=== PATIENT | female | born 1985 | race Caucasian/White ===

== ENCOUNTER 2018-03-09 20:48 | Inpatient (IN) | payer MEDICAID ==
[2018-03-09 23:03] LABS: ADD MAN DIFF? NO
[2018-03-09 23:11] LABS: BASOPHIL # 0.1 10^3/ul (0.0-0.1); BASOPHILS % 0.5 % (0.0-2.0); EOSINOPHILS # 0.1 10^3/ul (0.0-0.5); EOSINOPHILS % 1.1 % (0.0-7.0); HEMATOCRIT 40.5 % (37.0-47.0); HEMOGLOBIN 13.8 g/dl (12.0-16.0); LYMPHOCYTES # 2.6 10^3/ul (0.8-2.9); LYMPHOCYTES % 27.4 % (15.0-51.0); MEAN CORPUSCULAR HEMOGLOBIN 32.2 pg (29.0-33.0); MEAN CORPUSCULAR HGB CONC 34.1 g/dl (32.0-37.0); MEAN CORPUSCULAR VOLUME 94.4 fl (82.0-101.0); MEAN PLATELET VOLUME 11.2 fl (7.4-10.4); MONOCYTE # 0.4 10^3/ul (0.3-0.9); MONOCYTES % 4.6 % (0.0-11.0); NEUTROPHIL # 6.2 10^3/ul (1.6-7.5); NEUTROPHILS % 65.8 % (39.0-77.0); PLATELET COUNT 202 10^3/UL (140-415); RED BLOOD COUNT 4.29 10^6/ul (4.20-5.40); RED CELL DISTRIBUTION WIDTH 12.5 % (11.5-14.5)
[2018-03-09 23:11] LABS: WHITE BLOOD COUNT 9.4 10^3/ul (4.8-10.8)
[2018-03-09 23:28] LABS: ALANINE AMINOTRANSFERASE 83 IU/L (13-69); ALBUMIN 3.5 g/dl (3.3-4.9); ALBUMIN/GLOBULIN RATIO 1.12; ALKALINE PHOSPHATASE 237 IU/L (42-121); ANION GAP 11 (5-13); ASPARTATE AMINO TRANSFERASE 76 IU/L (15-46); BILIRUBIN,INDIRECT 0.3 mg/dl (0-1.1); BILIRUBIN,TOTAL 0.3 mg/dl (0.2-1.3); BLOOD UREA NITROGEN 14 mg/dl (7-20); CALCIUM 9.4 mg/dl (8.4-10.2); CARBON DIOXIDE 24 mmol/L (21-31); CHLORIDE 105 mmol/L (97-110); CREATININE 0.68 mg/dl (0.44-1.00); Estimated GFR > 60 mL/min (>60); GLUCOSE 83 mg/dl (70-220); POTASSIUM 4.2 mmol/L (3.5-5.1); SODIUM 140 mmol/L (135-144); TOTAL PROTEIN 6.6 g/dl (6.1-8.1)
[2018-03-10] MEDS ORDERED: ACETAMINOPHEN 325 MG TAB PO (01:30)
[2018-03-10] MEDS: URSODIOL 300 MG CAP PO ×3 (02:30→21:42)
[2018-03-10 06:22] LABS: ADD MAN DIFF? NO
[2018-03-10 06:23] LABS: WHITE BLOOD COUNT 9.1 10^3/ul (4.8-10.8)
[2018-03-10 06:23] LABS: BASOPHIL # 0.1 10^3/ul (0.0-0.1); BASOPHILS % 0.5 % (0.0-2.0); EOSINOPHILS # 0.1 10^3/ul (0.0-0.5); EOSINOPHILS % 1.2 % (0.0-7.0); HEMATOCRIT 39.6 % (37.0-47.0); HEMOGLOBIN 13.3 g/dl (12.0-16.0); LYMPHOCYTES # 2.7 10^3/ul (0.8-2.9); MEAN CORPUSCULAR HEMOGLOBIN 31.4 pg (29.0-33.0); MEAN CORPUSCULAR HGB CONC 33.6 g/dl (32.0-37.0); MEAN CORPUSCULAR VOLUME 93.6 fl (82.0-101.0); MEAN PLATELET VOLUME 11.3 fl (7.4-10.4); MONOCYTE # 0.5 10^3/ul (0.3-0.9); MONOCYTES % 4.9 % (0.0-11.0); NEUTROPHIL # 5.8 10^3/ul (1.6-7.5); NEUTROPHILS % 63.6 % (39.0-77.0); PLATELET COUNT 199 10^3/UL (140-415); RED BLOOD COUNT 4.23 10^6/ul (4.20-5.40); RED CELL DISTRIBUTION WIDTH 12.5 % (11.5-14.5)
[2018-03-10 06:52] LABS: ALANINE AMINOTRANSFERASE 75 IU/L (13-69); ALBUMIN 3.3 g/dl (3.3-4.9); ALKALINE PHOSPHATASE 231 IU/L (42-121); ANION GAP 12 (5-13); ASPARTATE AMINO TRANSFERASE 69 IU/L (15-46); BILIRUBIN,INDIRECT 0.4 mg/dl (0-1.1); BILIRUBIN,TOTAL 0.4 mg/dl (0.2-1.3); BLOOD UREA NITROGEN 14 mg/dl (7-20); CALCIUM 9.2 mg/dl (8.4-10.2); CARBON DIOXIDE 20 mmol/L (21-31); CHLORIDE 107 mmol/L (97-110); CREATININE 0.65 mg/dl (0.44-1.00); Estimated GFR > 60 mL/min (>60); GLUCOSE 84 mg/dl (70-220); SODIUM 139 mmol/L (135-144); TOTAL PROTEIN 6.3 g/dl (6.1-8.1); URIC ACID 6.7 mg/dl (3.1-7.9)
[2018-03-10 08:14] LABS: ADD UMIC NO; UR ASCORBIC ACID NEGATIVE (NEGATIVE); UR BILIRUBIN (Dip) NEGATIVE (NEGATIVE); UR BLOOD (Dip) NEGATIVE (NEGATIVE); UR CLARITY CLEAR (CLEAR); UR COLOR YELLOW (YELLOW); UR GLUCOSE (Dip) NEGATIVE (NEGATIVE); UR KETONES (Dip) NEGATIVE (NEGATIVE); UR LEUKOCYTE ESTERASE (Dip) NEGATIVE Leu/ul (NEGATIVE); UR NITRITE (Dip) NEGATIVE (NEGATIVE); UR SPECIFIC GRAVITY (Dip) 1.017 (1.003-1.030); UR TOTAL PROTEIN (Dip) NEGATIVE (NEGATIVE); UR UROBILINOGEN (Dip) NEGATIVE (NEGATIVE)
[2018-03-10] MEDS: PRENATAL VITAMIN PO (09:04)
[2018-03-10] MEDS: DOCUSATE SODIUM 100 MG CAP PO (09:04)
[2018-03-10] MEDS: LACTATED RINGER'S 1,000 ML IV ×2 (11:21→19:45)
[2018-03-10] MEDS ORDERED: BUTORPHANOL 2 MG INJ IV (11:30)
[2018-03-10] MEDS ORDERED: MISOPROSTOL 200 MCG TAB PR (11:30)
[2018-03-10] MEDS ORDERED: LIDOCAINE 1% (MPF) 30 ML INJ INJ (11:30)
[2018-03-10] MEDS ORDERED: OXYTOCIN 30 UNITS/LR 500 ML IV (11:30)
[2018-03-10] MEDS ORDERED: METHYLERGONOVINE 0.2 MG INJ IM (11:30)
[2018-03-10] MEDS ORDERED: CARBOPROST 250 MCG INJ IM (11:30)
[2018-03-10 12:14] LABS: WHITE BLOOD COUNT 8.8 10^3/ul (4.8-10.8)
[2018-03-10 12:14] LABS: ADD MAN DIFF? NO; BASOPHIL # 0.1 10^3/ul (0.0-0.1); BASOPHILS % 0.6 % (0.0-2.0); EOSINOPHILS # 0.1 10^3/ul (0.0-0.5); EOSINOPHILS % 0.9 % (0.0-7.0); HEMATOCRIT 40.6 % (37.0-47.0); HEMOGLOBIN 13.7 g/dl (12.0-16.0); LYMPHOCYTES # 2.3 10^3/ul (0.8-2.9); LYMPHOCYTES % 25.9 % (15.0-51.0); MEAN CORPUSCULAR HEMOGLOBIN 31.8 pg (29.0-33.0); MEAN CORPUSCULAR HGB CONC 33.7 g/dl (32.0-37.0); MEAN CORPUSCULAR VOLUME 94.2 fl (82.0-101.0); MEAN PLATELET VOLUME 11.6 fl (7.4-10.4); MONOCYTE # 0.5 10^3/ul (0.3-0.9); MONOCYTES % 5.3 % (0.0-11.0); NEUTROPHIL # 5.9 10^3/ul (1.6-7.5); NEUTROPHILS % 66.6 % (39.0-77.0); PLATELET COUNT 212 10^3/UL (140-415); RED BLOOD COUNT 4.31 10^6/ul (4.20-5.40); RED CELL DISTRIBUTION WIDTH 12.5 % (11.5-14.5)
[2018-03-10 12:39] LABS: PROTIME 12.2 Sec (11.9-14.9)
[2018-03-10 12:40] LABS: PARTIAL THROMBOPLASTIN TIME 26.2 Sec (23.0-35.0)
[2018-03-10] MEDS: MISOPROSTOL 50 MCG CAPSULE PO ×3 (14:06→21:00)
[2018-03-10 15:15] LABS: RAPID PLASMA REAGIN NONREACTIVE (NR)
[2018-03-10] MEDS ORDERED: DEXTROSE 5%-LR 1,000 ML IV (16:30)
[2018-03-11] MEDS: MISOPROSTOL 50 MCG CAPSULE PO ×6 (01:00→21:00)
[2018-03-11] MEDS: LIDOCAINE 0.5% (SDV) 50 ML INJ INFIL (04:09)
[2018-03-11] MEDS: LACTATED RINGER'S 1,000 ML IV ×3 (04:09→20:34)
[2018-03-11] MEDS ORDERED: IBUPROFEN 600 MG TAB PO (06:00)
[2018-03-11] MEDS ORDERED: LIDOCAINE 1% (MPF) 30 ML INJ INJ (06:00)
[2018-03-11 06:40] LABS: HEPATITIS B SURFACE ANTIGEN NEGATIVE (NEGATIVE)
[2018-03-11] MEDS: URSODIOL 300 MG CAP PO ×2 (09:07→21:25)
[2018-03-12] MEDS: LACTATED RINGER'S 1,000 ML IV ×3 (04:55→21:57)
[2018-03-12] MEDS: URSODIOL 300 MG CAP PO ×2 (09:13→21:06)
[2018-03-12] MEDS: OXYTOCIN 30 UNITS/LR 500 ML IV (10:43)
[2018-03-13] MEDS: LACTATED RINGER'S 1,000 ML IV (01:26)
[2018-03-13] MEDS ORDERED: FENTAnyl 2MCG/ML-ROPIV 0.2% 100 ML (01:45)
[2018-03-13] MEDS ORDERED: DIPHENHYDRAMINE 50 MG INJ IV ×2 (02:00→03:00)
[2018-03-13] MEDS ORDERED: FENTAnyl 2MCG/ML-ROPIV 0.2% 100 ML BAG EPI (02:00)
[2018-03-13] MEDS ORDERED: NALOXONE (0.4 MG/ML) INJ IV (02:00)
[2018-03-13] MEDS ORDERED: ONDANSETRON 4 MG INJ IV ×2 (02:00→03:00)
[2018-03-13] MEDS: OXYTOCIN 30 UNITS/LR 500 ML IV ×2 (02:12→03:33)
[2018-03-13] MEDS ORDERED: DEXTROSE 5%-LR 1,000 ML IV (02:41)
[2018-03-13] MEDS: LACTATED RINGER'S 1,000 ML IV* ×2 (02:41→08:05)
[2018-03-13] MEDS ORDERED: DIBUCAINE 1% 30 GM OINT TOP (03:00)
[2018-03-13] MEDS ORDERED: MISOPROSTOL 200 MCG TAB PR (03:00)
[2018-03-13] MEDS ORDERED: ZOLPIDEM 5 MG TAB PO (03:00)
[2018-03-13] MEDS ORDERED: ACETAMINOPHEN 325 MG TAB PO (03:00)
[2018-03-13] MEDS ORDERED: CARBOPROST 250 MCG INJ IM (03:00)
[2018-03-13] MEDS ORDERED: MAGNESIUM HYDROXIDE 30ML CUP PO (03:00)
[2018-03-13] MEDS ORDERED: OXYTOCIN 30 UNITS/LR 500 ML IV (03:00)
[2018-03-13] MEDS ORDERED: METHYLERGONOVINE 0.2 MG INJ IM (03:00)
[2018-03-13] MEDS: IBUPROFEN 600 MG TAB PO ×3 (06:29→17:25)
[2018-03-13] MEDS: LANOLIN HPA 1 PKT TOP (08:17)
[2018-03-13] MEDS: WITCH HAZEL/GLYCERIN PAD PR (08:17)
[2018-03-13] MEDS: SENNA/DOCUSATE NA (8.6MG/50MG) TAB PO (08:17)
[2018-03-13] MEDS: BENZOCAINE 20% 56 ML SPRAY TOP (08:17)
[2018-03-13] MEDS: OXYCODONE/ASPIRIN (4.88/325) TAB PO ×3 (08:18→20:19)
[2018-03-14] MEDS: IBUPROFEN 600 MG TAB PO ×4 (00:03→17:23)
[2018-03-14 09:03] LABS: ADD MAN DIFF? NO
[2018-03-14 09:07] LABS: BASOPHIL # 0.1 10^3/ul (0.0-0.1); BASOPHILS % 0.6 % (0.0-2.0); EOSINOPHILS # 0.2 10^3/ul (0.0-0.5); EOSINOPHILS % 1.7 % (0.0-7.0); HEMATOCRIT 40.5 % (37.0-47.0); HEMOGLOBIN 13.4 g/dl (12.0-16.0); LYMPHOCYTES # 3.7 10^3/ul (0.8-2.9); LYMPHOCYTES % 36.1 % (15.0-51.0); MEAN CORPUSCULAR HGB CONC 33.1 g/dl (32.0-37.0); MEAN CORPUSCULAR VOLUME 96.7 fl (82.0-101.0); MEAN PLATELET VOLUME 11.9 fl (7.4-10.4); MONOCYTE # 0.5 10^3/ul (0.3-0.9); MONOCYTES % 4.8 % (0.0-11.0); NEUTROPHIL # 5.7 10^3/ul (1.6-7.5); NEUTROPHILS % 56.5 % (39.0-77.0); PLATELET COUNT 197 10^3/UL (140-415); RED BLOOD COUNT 4.19 10^6/ul (4.20-5.40); RED CELL DISTRIBUTION WIDTH 12.7 % (11.5-14.5)
[2018-03-14 09:07] LABS: WHITE BLOOD COUNT 10.1 10^3/ul (4.8-10.8)
[2018-03-15] MEDS: IBUPROFEN 600 MG TAB PO ×3 (00:31→11:51)
[2018-03-15] MEDS: MEASLES,MUMPS,RUBELLA VACCINE INJ SC* (08:20)
[2018-03-15] MEDS: DIPHTH/TET/ACEL PERTUSS (ADULT) 0.5 ML VIAL IM* (08:30)
== END 2018-03-15 13:34 | disposition home or self-care (01) | DRG 805 ==
LOC: OBT 20:48 → PP1 03-13 04:05 → L-D 20:51 → PP1 03-10 07:40 → L-D 03-10 10:45
PROC: 4A1HXCZ Monitoring of Products of Conception, Cardiac Rate, External Approach (ICD-10-PCS; 2018-03-10)
PROC: 3E0P7GC Introduction of Other Therapeutic Substance into Female Reproductive, Via Natural or Artificial Opening (ICD-10-PCS; 2018-03-10)
PROC: 10907ZC Drainage of Amniotic Fluid, Therapeutic from Products of Conception, Via Natural or Artificial Opening (ICD-10-PCS; 2018-03-12)
PROC: 10E0XZZ Delivery of Products of Conception, External Approach (ICD-10-PCS; principal; 2018-03-13)
PROC: 3E0234Z Introduction of Serum, Toxoid and Vaccine into Muscle, Percutaneous Approach (ICD-10-PCS; 2018-03-14)
PROC: 3E0234Z Introduction of Serum, Toxoid and Vaccine into Muscle, Percutaneous Approach (ICD-10-PCS; 2018-03-15)
DX: O26.62 Liver and biliary tract disorders in childbirth (principal); K83.1 Obstruction of bile duct; Z37.0 Single live birth; Z3A.37 37 weeks gestation of pregnancy; Z23 Encounter for immunization
CPT/HCPCS: 62319; 76815; 76818; 80053; 81003; 84560; 85025; 85610; 85730; 86592; 86850; 86900; 86901; 87340; 90686; 90715